=== PATIENT | male | born 1965 | race Hispanic/Latino ===

== ENCOUNTER 2017-10-14 13:16 | Emergency (ER) | payer MEDICAID ==
[2017-10-14] MEDS ORDERED: CATAPRES ONE (14:55)
[2017-10-14] MEDS ORDERED: CATAPRES PO ONE (14:59)
--- NOTE | 2017-10-14 17:30 | Emergency Department Report ---
HPI - General Chief Complaint: Laceration/Recheck/Suture Time Seen by Provider: 10/14/17 17:29 ED Past Medical Hx - Past Medical History Hx Hypertension: Yes - Surgical History Past Surgical History?: Yes Additional Surgical History: METAL PLATE IN LEFT FOOT - Social History Smoking Status: Current Every Day Smoker Substance Use Type: Alcohol, Marijuana ED Review of Systems ROS: Stated complaint: FACE LACERATION Other details as noted in HPI Physical Exam - Physical Exam Vital Signs: Vital Signs 10/14/17 10/14/17 10/14/17 14:37 14:59 16:39 Temperature 98.3 F Pulse Rate 86 86 68 Respiratory 16 18 Rate Blood Pressure 207/128 207/128 Blood Pressure 161/95 [Right] O2 Sat by Pulse 99 98 Oximetry ED Course Vital Signs 10/14/17 10/14/17 10/14/17 14:37 14:59 16:39 Temperature 98.3 F Pulse Rate 86 86 68 Respiratory 16 18 Rate Blood Pressure 207/128 207/128 Blood Pressure 161/95 [Right] O2 Sat by Pulse 99 98 Oximetry Critical care attestation.: If time is entered above; I have spent that time in minutes in the direct care of this critically ill patient, excluding procedure time. ED Disposition Condition: Stable Referrals: PRIMARY CARE, [Primary Care Provider] - 3-5 Days
[2017-10-14] MEDS ORDERED: XYLOCAINE 1% MPF 5 mL INFILTRATI ONE (17:47)
[2017-10-14] MEDS ORDERED: VALIUM PO ONE (17:47)
[2017-10-14] MEDS ORDERED: ROCEPHIN IM ONE (17:47)
[2017-10-14] MEDS ORDERED: MARCAINE 0.5% INFILTRATI ONE (17:52)
[2017-10-14] MEDS ORDERED: NACL 0.9% IR ONE (17:52)
--- NOTE | 2017-10-14 17:53 | Emergency Department Report ---
Chief Complaint: Laceration/Recheck/Suture Stated Complaint: FACE LACERATION Time Seen by Provider: 10/14/17 17:29 - HPI History of Present Illness: Patient and he reports that he fell and hit his face today at work and he has a cut on the right side of his eye between his eye in his nose.10/14/17 14:00 He said a piece of ear condition all equipment cut his nasal area. Patient reports that he has swelling around his right eye and slight headache at 2 out of 10. Denies any nausea or vomiting. Denies passing out or loss of consciousness. Denies taking any medication. Patient is also saying that he has a history of high blood pressure and is supposed to be taken out some kind of blood pressure medication but he doesn't remember what it is. He is also saying that he was on crack and got off crack 7 years ago but he still shaky and he needs something for nervousness. Patient does not have a primary care doctor and would like to be referred to one. Patient is hypertensive at 207/ 128 and he was given clonidine 0.2 mg. Denies any chest pain or shortness of breath. - ROS Review of Systems: All systems are negative unless stated in HPI above - Exam Vital Signs: Vital Signs 10/14/17 10/14/17 10/14/17 14:37 14:59 16:39 Temperature 98.3 F Pulse Rate 86 86 68 Respiratory 16 18 Rate Blood Pressure 207/128 207/128 Blood Pressure 161/95 [Right] O2 Sat by Pulse 99 98 Oximetry 10/14/17 17:33 Temperature Pulse Rate 79 Respiratory 20 Rate Blood Pressure Blood Pressure 152/103 [Right] O2 Sat by Pulse Oximetry Physical Exam: Gen.: This is a 52-year-old male well-nourished well-developed, he looks disheveled but appears to be his norm. Mini neurological exam: Alert and oriented 3, normal gait, GCS of 15. Speech is clear and fluid. No facial drooping. Negative Romberg and negative pronator drift Skin: Noted large irregular, deep laceration that is bleeding into right facial area in a canthus close to eye and nasal area. Head: Positive swelling and around right eye, positive facial tenderness. Head is normocephalic, atraumatic to skull area. Psych: Patient appears slightly anxious with some tremors to hand. MSE screening note: Focused history and physical exam performed. Due to findings the following was ordered: See MDM ED Medical Decision Making - Medical Decision Making MDM: Screening done by provider. Patient was given clonidine 0.2 mg in triage area and blood pressure rechecked and is better but diastolic is still a 103. It was at 128 prior to clonidine. Patient was given Valium 10 mg by mouth for anxiety. CT scan of the head and facial bones ordered and pending. Tetanus vaccine ordered. Patient given Rocephin 1 g IM to cover facial laceration. Laceration set up. CT scan of the head and facial bones though pending. ED Disposition for MSE Condition: Stable Referrals: PRIMARY CARE, [Primary Care Provider] - 3-5 Days
[2017-10-14] MEDS ORDERED: BOOSTRIX IM ONE (18:51)
--- NOTE | 2017-10-14 19:37 | Cat Scan Report ---
FINAL REPORT EXAM: CT FACIAL BONES WO CON HISTORY: fall with facial laceration and pain. rt periorb TECHNIQUE: CT head without contrast PRIORS: None. FINDINGS: No acute intra-axial or extra-axial hemorrhage is identified. There is no evidence of midline shift or mass effect. The ventricles and sulci are within normal limits. Rondon-white matter differentiation is intact. No acute parenchymal abnormalities seen. Bony calvarium is grossly intact. Visualized portions of the mastoids and paranasal sinuses are unremarkable. IMPRESSION: Negative CT head
--- NOTE | 2017-10-14 19:56 | Cat Scan Report ---
FINAL REPORT EXAM: CT HEAD/BRAIN WO CON HISTORY: fall with headache, contusion TECHNIQUE: Axial noncontrast CT images of the brain were performed. Total exam DLP 2293.15 mGy-cm Comparison: None FINDINGS: Sequence was repeated due to motion degradation. There is mild cortical atrophy. There is no midline shift or mass effect. There are no acute extra-axial fluid collections or intraparenchymal blood products Ventricles and cisterns have normal size and configuration. Conjugate gaze. Orbital cones and apices are within normal limits. There is mild inferior frontal sinus mucosal thickening. The remaining imaged paranasal sinuses are well aerated. Incidental identified cavum septum pellucidum. Right frontal and nasolacrimal region soft tissue swelling without associated fracture. IMPRESSION: No acute posttraumatic intracranial abnormality. Specifically, no blood products. Right frontal and nasal lacrimal/nasofrontal region soft tissue swelling without underlying fracture. Well aerated frontal sinus. There is mild left inferior frontal sinus mucosal thickening.
--- NOTE | 2017-10-14 20:05 | Emergency Department Report ---
ED Head Trauma HPI - General Chief complaint: Laceration/Recheck/Suture Stated complaint: FACE LACERATION Time Seen by Provider: 10/14/17 17:29 Source: patient Mode of arrival: Ambulatory Limitations: No Limitations - History of Present Illness Initial comments: 52-year-old male past medical history hypertension, drug use presents with complaint of laceration to right orbit/eyebrow region, as per patient he was moving around a piece of air-conditioning equipment in the back of a truck, tripped and fell forward and hit PVC pipe sticking out of air-conditioning equipment lacerated his right orbit region. Patient denies any loss of consciousness. Patient is awake alert and oriented 3 with visible laceration just below right eyebrow. Denies any blurry vision. States he is out of his hypertension medication. Denies any trauma to any other body part. MD Complaint: head injury, head pain -: This afternoon Location: occipital (right upepr orbit) Loss of Consciousness: no Previous Trauma to this Area: No Place: home Radiation: none Severity: mild Severity scale (0 -10): 7 Quality: sharp Consistency: intermittent Other Injuries: laceration Associated Symptoms: denies other symptoms - Related Data Previous Rx's Medication Instructions Recorded Last Taken Type Acetaminophen [Acetaminophen TAB] 500 mg PO Q6HR PRN #20 tablet 10/14/17 Unknown Rx Cephalexin [Keflex] 500 mg PO Q12HR #10 cap 10/14/17 Unknown Rx Neomy/Baci/Polymyx Oint [Triple 1 applicatio TP BID #1 oint 10/14/17 Unknown Rx Antibiotic] amLODIPine [Norvasc] 5 mg PO DAILY #30 tab 10/14/17 Unknown Rx Allergies/Adverse reactions: Allergies Allergy/AdvReac Type Severity Reaction Status Date / Time No Known Allergies Allergy Verified 10/14/17 15:03 ED Review of Systems ROS: Stated complaint: FACE LACERATION Other details as noted in HPI Constitutional: denies: chills, fever Eyes: denies: eye pain, eye discharge, vision change ENT: denies: ear pain, throat pain Respiratory: denies: cough, shortness of breath, wheezing Cardiovascular: denies: chest pain, palpitations Endocrine: no symptoms reported Gastrointestinal: denies: abdominal pain, nausea, diarrhea Genitourinary: denies: urgency, dysuria Musculoskeletal: denies: back pain, joint swelling, arthralgia Skin: denies: rash, lesions Neurological: denies: headache, weakness, paresthesias Psychiatric: denies: anxiety, depression Hematological/Lymphatic: denies: easy bleeding, easy bruising ED Past Medical Hx - Past Medical History Hx Hypertension: Yes - Surgical History Past Surgical History?: Yes Additional Surgical History: METAL PLATE IN LEFT FOOT - Social History Smoking Status: Current Every Day Smoker Substance Use Type: Alcohol, Marijuana - Medications Home Medications: Home Medications Medication Instructions Recorded Confirmed Last Taken Type Acetaminophen [Acetaminophen TAB] 500 mg PO Q6HR PRN #20 tablet 10/14/17 Unknown Rx Cephalexin [Keflex] 500 mg PO Q12HR #10 cap 10/14/17 Unknown Rx Neomy/Baci/Polymyx Oint [Triple 1 applicatio TP BID #1 oint 10/14/17 Unknown Rx Antibiotic] amLODIPine [Norvasc] 5 mg PO DAILY #30 tab 10/14/17 Unknown Rx ED Physical Exam - General Limitations: No Limitations General appearance: alert, in no apparent distress - Head Head exam: Present: atraumatic, normocephalic - Eye Eye exam: Present: normal appearance, PERRL, EOMI Pupils: Present: normal accommodation - ENT ENT exam: Present: mucous membranes moist - Neck Neck exam: Present: normal inspection - Respiratory Respiratory exam: Present: normal lung sounds bilaterally. Absent: respiratory distress - Cardiovascular Cardiovascular Exam: Present: regular rate, normal rhythm. Absent: systolic murmur, diastolic murmur, rubs, gallop - GI/Abdominal GI/Abdominal exam: Present: soft, normal bowel sounds - Rectal Rectal exam: Present: deferred - Extremities Exam Extremities exam: Present: normal inspection - Back Exam Back exam: Present: normal inspection - Neurological Exam Neurological exam: Present: alert, oriented X3 - Psychiatric Psychiatric exam: Present: normal affect, normal mood - Skin Skin exam: Present: warm, dry, intact, normal color. Absent: rash ED Course Vital Signs 10/14/17 10/14/17 10/14/17 14:37 14:59 16:39 Temperature 98.3 F Pulse Rate 86 86 68 Respiratory 16 18 Rate Blood Pressure 207/128 207/128 Blood Pressure 161/95 [Right] O2 Sat by Pulse 99 98 Oximetry 10/14/17 17:33 Temperature Pulse Rate 79 Respiratory 20 Rate Blood Pressure Blood Pressure 152/103 [Right] O2 Sat by Pulse Oximetry - Laceration /Wound Repair Right Face Wound Location: face (under right eyebrow) Wound Length (cm): 6 Wound's Depth, Shape: linear Irrigated w/ Saline (ccs): 100 Anesthesia: 1% Lidocaine Volume Anesthetic (ccs): 6 Wound Debrided: minimal Wound Repaired With: sutures Suture Size/Type: 4:0, nylon Number of Sutures: 8 Sterile Dressing Applied?: No (triple abx ointment) - Medical Decision Making A/P: Right eyebrow Laceration, asymptomatic hypertension 1- sutures to be removed in [address] head unremarkable. Post concussion precautions. 2- tetanus updated 3- Motrin when necessary, triple antibiotic ointment 4- pt advised to return to the ED for any fevers chills pus drainage erythema at site of laceration 5- patient's blood pressure was significantly elevated before discharge. Systolic 180 diastolic 120. I encouraged patient to stay for further testing and management the patient stated he needed to leave due to personal responsibilities. I advised in one patient that uncontrolled blood pressure can lead to stroke and heart attack permanent disability or . Patient stated he understood but stated he still related to leave. I referred him to primary care prescribed him low-dose amlodipine and patient signed out AGAINST MEDICAL ADVICE. This was witnessed by pedodontist Mr. Jasso - NEXUS Criteria Focal neurological deficit present: No Midline spinal tenderness present: No Altered level of consciousness: No Intoxication present: No Distracting injury present: No NEXUS results: C-Spine can be cleared clinically by these results. Imaging is not required. Critical care attestation.: If time is entered above; I have spent that time in minutes in the direct care of this critically ill patient, excluding procedure time. ED Disposition Clinical Impression: Asymptomatic hypertension Laceration of right eyebrow Qualifiers: Encounter type: initial encounter Qualified Code(s): S01.111A - Laceration without foreign body of right eyelid and periocular area, initial encounter Disposition: LEFT AGAINST MED ADVICE Is pt being admited?: No Does the pt Need Aspirin: No Condition: Stable Instructions: Amlodipine (By mouth), Suture Care (ED), Laceration (ED), Post Concussion Syndrome (ED), Hypertension (ED) Additional Instructions: Sutures to be removed in 7 days Prescriptions: Acetaminophen [Acetaminophen TAB] 500 mg PO Q6HR PRN #20 tablet PRN Reason: Pain amLODIPine [Norvasc] 5 mg PO DAILY #30 tab Cephalexin [Keflex] 500 mg PO Q12HR #10 cap Neomy/Baci/Polymyx Oint [Triple Antibiotic] 1 applicatio TP BID #1 oint Referrals: [facility] [Outside] - 3-5 Days [facility] [Outside] - 3-5 Days [facility] [Outside] - 3-5 Days [facility] [Outside] - 3-5 Days Forms: AMA Form Time of Disposition: 20:21
[2017-10-14] MEDS ORDERED: TRIPLE ANTIBIOTIC TP ONE (20:20)
[2017-10-14] MEDS ORDERED: APRESOLINE IM ONE (20:38)
[2017-10-14] MEDS ORDERED: NORVASC PO ONE (20:39)
[2017-10-15 03:50] VITALS: BP 183/121
== END 2017-10-14 20:45 | disposition left against medical advice (07) ==
LOC: ED 13:16
DX: S01.111A Laceration without foreign body of right eyelid and periocular area, initial encounter (principal); I10 Essential (primary) hypertension; F12.10 Cannabis abuse, uncomplicated; F17.200 Nicotine dependence, unspecified, uncomplicated; W01.198A Fall on same level from slipping, tripping and stumbling with subsequent striking against other object, initial encounter; Y93.89 Activity, other specified; Y92.89 Other specified places as the place of occurrence of the external cause; Y99.8 Other external cause status
CPT/HCPCS: 12014; 70450; 70486; 90471; 90715; 96372; 99283; J0696; A6250

== ENCOUNTER 2017-12-13 11:29 | Emergency (ER) | payer MEDICAID ==
[2017-12-13 11:53] VITALS: BP 140/80
== END 2017-12-13 11:47 | disposition left against medical advice (07) ==
LOC: ED 11:29
DX: Z72.89 Other problems related to lifestyle (principal); F17.200 Nicotine dependence, unspecified, uncomplicated; Z53.21 Procedure and treatment not carried out due to patient leaving prior to being seen by health care provider

== ENCOUNTER 2018-02-12 17:04 | Emergency (ER) | payer MEDICAID ==
[2018-02-12] MEDS ORDERED: NACL 0.9% 1000 ML 2,000 ML ONE (17:27)
[2018-02-12] MEDS ORDERED: NACL 0.9% 1000 ML 2,000 ML IV ONE (17:39)
[2018-02-12] MEDS ORDERED: ATIVAN IM PRN (18:29)
[2018-02-12] MEDS ORDERED: HALDOL IM PRN (18:29)
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
[2018-02-12 19:04] LABS: Mean Corpuscular HGB Conc 36 % (32-34); Mean Corpuscular Hemoglobin 35 pg (28-32); Mean Corpuscular Volume 96 fl (84-94); Platelet Count 319 K/mm3 (140-440); Red Blood Count 4.09 M/mm3 (3.65-5.03); Red Cell Distribution Width 13.8 % (13.2-15.2)
[2018-02-12 19:07] LABS: Hematocrit 39.2 % (35.5-45.6); Hemoglobin 14.3 gm/dl (11.8-15.2)
[2018-02-12 19:16] LABS: BUN/Creatinine Ratio 13; Blood Urea Nitrogen 5 mg/dL (9-20); Calcium 8.1 mg/dL (8.4-10.2); Hemolysis Index 2
[2018-02-12] MEDS ORDERED: K-DUR PO ONE (19:21)
[2018-02-12] MEDS: KCL 10MEQ/100ML 10 MEQ/100 ML BAG IV SCH ×3 (19:56→23:10)
--- NOTE | 2018-02-12 20:51 | Cat Scan Report ---
FINAL REPORT PROCEDURE: CT CERVICAL SPINE WO CON TECHNIQUE: Computerized tomography of the cervical spine was performed from the skull base to T1 without contrast material. HISTORY: Alcohol Intoxication COMPARISON: No prior studies are available for comparison. FINDINGS: There is mild degree straightening of the upper cervical spine. Vertebral height is within normal limits. An acute fracture is not identified. Visualized lung apices demonstrate centrilobular emphysematous changes. Atherosclerotic calcification is noted involving carotid bifurcations. Thyroid is unremarkable. C1-2: There is narrowing of the atlantoaxial joint space with mild degree osteophyte formation.. C2-3: No significant abnormality. C3-4: There is mild degree bilateral neural foraminal stenosis secondary to uncovertebral degenerative changes.. C4-5: Mild degree left neural foraminal stenosis is noted secondary to uncovertebral degenerative changes.. C5-6: There is mild degree broad-based disc osteophyte complex resulting in moderate degree left lateral recess stenosis. Mild degree right-sided and moderate degree left-sided neural foraminal stenosis is noted secondary to uncovertebral degenerative changes.. C6-7: Moderate to severe degree right neural foraminal stenosis is noted secondary to uncovertebral degenerative changes.. C7-T1: No significant abnormality. Other: No additional findings. IMPRESSION: Multilevel cervical spondylosis as described above. No acute fracture Carotid calcification is noted. Ultrasound evaluation is recommended. Centrilobular emphysema.
--- NOTE | 2018-02-12 21:10 | Cat Scan Report ---
FINAL REPORT PROCEDURE: CT HEAD/BRAIN WO CON TECHNIQUE: Computerized tomography of the head was performed without contrast material. HISTORY: Alcohol Intoxication COMPARISON: No prior studies are available for comparison. FINDINGS: Skull and scalp: Normal. Paranasal sinuses: Normal. Ventricles and subarachnoid spaces: Are prominent consistent with cerebral atrophy appropriate for patient's age.. Cerebrum: No evidence of hemorrhage, acute infarction or mass . Cerebellum and brainstem: No evidence of hemorrhage, acute infarction or mass. Vasculature: Atherosclerotic calcification is noted involving bilateral internal carotid and vertebral arteries. There is mild degree mucosal thickening of left maxillary sinus. Comments: None. IMPRESSION: No acute intracranial abnormality Chronic left maxillary sinusitis
--- NOTE | 2018-02-12 21:29 | XRay Report ---
FINAL REPORT PROCEDURE: XR CHEST 1V AP TECHNIQUE: Chest radiograph anteroposterior view. CPT 79974 HISTORY: Alcohol Intoxication COMPARISON: No prior studies are available for comparison. FINDINGS: Heart: Normal. Mediastinum/Vessels: Normal. Lungs/Pleural space: A small patchy density is noted in the right upper lobe. Left lung and bilateral pleural spaces are clear.. Bony thorax: No acute osseous abnormality. Life support devices: None. IMPRESSION: A small patchy density in the right upper lobe is suspicious for pneumonia. A two view chest study is recommended whenever the patient's condition permits..
[2018-02-13] MEDS: KCL 10MEQ/100ML 10 MEQ/100 ML BAG IV SCH (01:18)
[2018-02-13 06:27] VITALS: BP 126/70
== END 2018-02-13 06:26 ==
LOC: ED 17:04
DX: F10.129 Alcohol abuse with intoxication, unspecified (principal); I10 Essential (primary) hypertension; R51 Headache; F17.200 Nicotine dependence, unspecified, uncomplicated
CPT/HCPCS: 36415; 70450; 71045; 72125; 80048; 83735; 85027; 96365; 99285; G0480; J3480; J7030; 80320

== ENCOUNTER 2018-02-27 08:40 | Emergency (ER) | payer MEDICAID ==
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
[2018-02-27] MEDS ORDERED: CATAPRES PO ONE (09:34)
[2018-02-27] MEDS ORDERED: MOTRIN PO ONE (09:34)
[2018-02-27] MEDS ORDERED: ULTRAM PO ONE (09:34)
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
[2018-02-27] MEDS ORDERED: TRIPLE ANTIBIOTIC TP ONE (10:32)
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
[2018-02-27 10:48] LABS: Amphetamine Screen,Urine PRESUMPTIVE NEGATIVE; Cocaine Screen,Urine PRESUMPTIVE NEGATIVE; Methadone Screen,Urine PRESUMPTIVE NEGATIVE; Opiate Screen,Urine PRESUMPTIVE NEGATIVE
[2018-02-27 10:49] VITALS: BP 131/93
[2018-02-27 11:02] LABS: Benzodiazepines Screen,Urine PRESUMPTIVE POSITIVE; Cannabinoid Screen,Urine PRESUMPTIVE POSITIVE
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
== END 2018-02-27 12:20 | disposition home or self-care (01) ==
LOC: ED 08:40
DX: S22.32XA Fracture of one rib, left side, initial encounter for closed fracture (principal); S50.02XA Contusion of left elbow, initial encounter; S00.81XA Abrasion of other part of head, initial encounter; I10 Essential (primary) hypertension; Y04.2XXA Assault by strike against or bumped into by another person, initial encounter; Y93.89 Activity, other specified; Y92.89 Other specified places as the place of occurrence of the external cause; Y99.8 Other external cause status
CPT/HCPCS: 70450; 80307; 93005; 93010; A6250

== ENCOUNTER 2018-09-25 16:29 | Emergency (ER) | payer MEDICAID, OTHER ==
--- NOTE | 2018-09-25 16:46 | Emergency Department Report ---
Blank Doc - Documentation Documentation: Jumped off ladder and having left foot numbness since yesterday yesterday. This initial assessment diagnostic orders/clinical plan/treatment (s) is/Are subject change based on patient's health status, clinical progression and re- assessment by fellow clinical providers in the ED. Further treatment and work-up at subsequent clinical providers discretion. Patient/guardians urged not to elope from their condition may be serious if not clinically assessed and managed. Initial order include:
--- NOTE | 2018-09-25 17:50 | XRay Report ---
PROCEDURE: XR FOOT 2V LT TECHNIQUE: Frontal and lateral views left foot HISTORY: Trauma COMPARISONS: None FINDINGS: There is evidence of a previous tarsal metatarsal fusion of the great toe. There is deformity of the second and third metatarsals consistent with sequela of previous fracture. There is no plain film evidence of acute fracture, subluxation or hardware failure. The soft tissues are unremarkable. IMPRESSION: 1. No plain film evidence of fracture, subluxation or hardware failure. 2. Sequela of previous fractures second and third metatarsal and previous great toe tarsometatarsal f usion with retained hardware. If there is a persistent clinical concern for acute injury, CT or MRI may be helpful. This document is electronically signed by Linda Mera MD., September 25 2018 05:48:17 PM ET
[2018-09-25] MEDS ORDERED: ULTRAM PO ONE (19:30)
--- NOTE | 2018-09-25 19:38 | Emergency Department Report ---
ED Lower Extremity HPI - General Chief Complaint: Neuro Symptoms/Deficit Stated Complaint: LFT FOOT TINGLE Time Seen by Provider: 09/25/18 19:27 Source: patient Mode of arrival: Ambulatory Limitations: No Limitations - History of Present Illness Initial Comments: Patient is a 53-year-old white male s tates he fell from ladder on yesterday approximately 8 feet landing on his feet did not present yesterday as he had no pain yesterday however woke up with left foot pain this morning described as 7/10 exacerbated by weightbearing flexing palpation patient to ED today pain is described as tingling and aching pain is relieved by offloading and rest there is no bleeding no deformity patient remains embolus or a steady gait to baseline per patient at this time MD Complaint: foot injury Onset/Timin -: days(s) Injury: Foot: Left Type of Injury: other (fall) Severity scale (0 -10): 4 Improves With: rest Worsens With: weight bearing, movement, palpation Associated Symptoms: snap/pop sensation, tingling - Related Data Home Medications Medication Instructions Recorded Confirmed Last Taken Docusate Sodium [Colace CAP] 100 mg PO BID PRN 06/28/18 06/28/18 06/28/18 FLUoxetine HCL [Prozac] 20 mg PO DAILY 06/28/18 06/28/18 06/28/18 Haloperidol 10 mg PO BID 06/28/18 06/28/18 06/28/18 carBAMazepine [Carbamazepine] 200 mg PO DAILY 06/28/18 06/28/18 06/28/18 diphenhydrAMINE [Benadryl CAP] 50 mg PO DAILY 06/28/18 06/28/18 06/28/18 Previous Rx's Medication Instructions Recorded Last Taken Type amLODIPine [Norvasc] 5 mg PO DAILY #30 tab 10/14/17 06/28/18 Rx Cyclobenzaprine [Flexeril] 10 mg PO TID PRN #30 tablet 09/25/18 Unknown Rx Naproxen 500 mg PO BID PRN #30 tablet 09/25/18 Unknown Rx Terbinafine [LamiSIL At 1%] 1 applicatio TP BID 14 Days #1 tube 09/25/18 Unknown Rx Allergies Allergy/AdvReac Type Severity Reaction Status Date / Time No Known Allergies Allergy Verified 09/25/18 16:48 ED Review of Systems ROS: Stated complaint: LFT FOOT TINGLE Other details as noted in HPI Constitutional: denies: chills, fever Eyes: denies: eye pain, eye discharge, vision change ENT: denies: ear pain, throat pain Respiratory: denies: cough, shortness of breath, wheezing Cardiovascular: denies: chest pain, palpitations Endocrine: no symptoms reported Gastrointestinal: denies: abdominal pain, nausea, diarrhea Genitourinary: denies: urgency, dysuria Musculoskeletal: arthralgia, other (foot paion ). denies: back pain, joint swelling Skin: denies: rash, lesions Neurological: denies: headache, weakness, paresthesias Psychiatric: denies: anxiety, depression Hematological/Lymphatic: denies: easy bleeding, easy bruising ED Past Medical Hx - Past Medical History Hx Hypertension: Yes Hx Congestive Heart Failure: No Hx Diabetes: No Hx Sickle Cell Disease: No Hx Seizures: Yes Hx Psychiatric Treatment: Yes (history of hernia, bipolar disorder) Hx Asthma: No Hx COPD: No Hx HIV: No - Surgical History Hx Open Heart Surgery: No Hx Cholecystectomy: No Hx Appendectomy: No Hx Breast Surgery: No Additional Surgical History: METAL PLATE IN LEFT FOOT - Social History Smoking Status: Current Every Day Smoker Substance Use Type: None - Medications Home Medications: Home Medications Medication Instructions Recorded Confirmed Last Taken Type amLODIPine [Norvasc] 5 mg PO DAILY #30 tab 10/14/17 06/28/18 06/28/18 Rx Docusate Sodium [Colace CAP] 100 mg PO BID PRN 06/28/18 06/28/18 06/28/18 History FLUoxetine HCL [Prozac] 20 mg PO DAILY 06/28/18 06/28/18 06/28/18 History Haloperidol 10 mg PO BID 06/28/18 06/28/18 06/28/18 History carBAMazepine [Carbamazepine] 200 mg PO DAILY 06/28/18 06/28/18 06/28/18 History diphenhydrAMINE [Benadryl CAP] 50 mg PO DAILY 06/28/18 06/28/18 06/28/18 History Cyclobenzaprine [Flexeril] 10 mg PO TID PRN #30 tablet 09/25/18 Unknown Rx Naproxen 500 mg PO BID PRN #30 tablet 09/25/18 Unknown Rx Terbinafine [LamiSIL At 1%] 1 applicatio TP BID 14 Days #1 tube 09/25/18 Un known Rx ED Physical Exam - General Limitations: No Limitations General appearance: alert, in no apparent distress - Head Head exam: Present: atraumatic, normocephalic - Eye Eye exam: Present: normal appearance, PERRL, EOMI Pupils: Present: normal accommodation - ENT ENT exam: Present: normal orophraynx, mucous membranes moist, TM's normal bilaterally, normal external ear exam - Neck Neck exam: Present: normal inspection, full ROM. Absent: tenderness, meningismus, lymphadenopathy, thyromegaly - Expanded Neck Exam Expanded Neck exam: Absent: tenderness, midline deformity, anterior neck swelling, thyroid mass, carotid bruit, tracheal deviation - Respiratory Respiratory exam: Present: normal lung sounds bilaterally. Absent: respiratory distress, wheezes, stridor, chest wall tenderness - Cardiovascular Cardiovascular Exam: Present: regular rate, normal rhythm, normal heart sounds. Absent: systolic murmur, diastolic murmur, rubs, gallop - GI/Abdominal GI/Abdominal exam: Present: soft, normal bowel sounds. Absent: tenderness, bruit, hernia - Rectal Rectal exam: Present: deferred - Extremities Exam Extremities exam: Present: full ROM, tenderness (left medial foot pain ), normal capillary refill. Absent: pedal edema, joint swelling, calf tenderness - Expanded Lower Extremity Exam Left Foot/Toe exam: Present: tenderness, erythema. Absent: swelling, abrasion, laceration, ecchymosis, deformity, crepidus, dislocation, amputation, puncture wound, foreign body, calcaneal tenderness, tenderness at base of 5th metatarsal, nail avulsion, subungual hematoma Neuro vascular tendon exam: Present: no vascular compromise. Absent: pulse deficit, motor deficit, sensory deficit, tendon deficit Gait: Positive: observed and normal - Back Exam Back exam: Present: normal inspection, full ROM. Absent: tenderness, CVA tenderness (R), CVA tenderness (L), muscle spasm, paraspinal tenderness, vertebral tenderness, rash noted - Neurological Exam Neurological exam: Present: alert, oriented X3, CN II-XII intact, normal gait, reflexes normal - Expanded Neurological Exam Expanded Patient oriented to: Present: person, place, time Speech: Present: fluid speech Cerebellar function: Finger to Nose: Normal, Heel to Wray: Normal, Romberg: Normal Sensory exam: Lower Extremity Light Touch: Normal, Lower Extremity Pin Prick: Normal, Lower Extremity Temperature: Normal, LE 2 Point Discrimination: Normal Motor strength exam: RLE: 5, LLE: 5 DTR: knee (R): 2+, knee (L): 2+, ankle (R): 2+, ankle (L): 2+ Best Eye Response (Vanessa): (4) open spontaneously Best Motor Response ([place]): (6) obeys commands Best Verbal Response (Vanessa): (5) oriented [place] Total: 15 - Psychiatric Psychiatric exam: Present: normal affect, normal mood - Skin Skin exam: Present: warm, dry, intact, normal color. Absent: rash ED Course Vital Signs 09/25/18 16:48 Temperature 99.1 F Pulse Rate 95 H Respiratory 18 Rate Blood Pressure 167/72 O2 Sat by Pulse 97 Oximetry ED Lower Extremity MDM - Radiology Data Radiology results: report reviewed, image reviewed ROCEDURE: XR FOOT 2V LT TECHNIQUE: Frontal and lateral views left foot HISTORY: Trauma COMPARISONS: None FINDINGS: There is evidence of a previous tarsal metatarsal fusion of the great toe. There is deformity of the second and third metatarsals consistent with sequela of previous fracture. There is no plain film evidence of acute fracture, subluxation or hardware failure. The soft tissues are unremarkable. IMPRESSION: 1. No plain film evidence of fracture, subluxation or hardware failure. 2. Sequela of previous fractures second and third metatarsal and previous great toe tarsometatarsal fusion with retained hardware. If there is a persistent clinical concern for acute injury, CT or MRI may be helpful. 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 Gait is steady and uninhibited at this time. Critical care attestation.: If time is entered above; I have spent that time in minutes in the direct care of this critically ill patient, excluding procedure time. ED Disposition Clinical Impression: Foot sprain Qualifiers: Encounter type: initial encounter Tinea pedis Qualifiers: Laterality: left Qualified Code(s): B35.3 - Tinea pedis Disposition: DC-01 TO HOME OR SELFCARE Is pt being admited?: No Does the pt Need Aspirin: No Condition: Stable Instructions: Foot Sprain (ED), Tinea Pedis (ED) Prescriptions: Cyclobenzaprine [Flexeril] 10 mg PO TID PRN #30 tablet PRN Reason: Muscle Spasm Naproxen 500 mg PO BID PRN #30 tablet PRN Reason: Pain Terbinafine [LamiSIL At 1%] 1 applicatio TP BID 14 Days #1 tube Referrals: KENYON MCCAULEYCHANDLER MD DYLAN [Primary Care Provider] - 3-5 Days Forms: Work/School Release Form(ED) Time of Disposition: 19:47
[2018-09-25 20:11] VITALS: BP 129/95
== END 2018-09-25 20:10 | disposition home or self-care (01) ==
LOC: ED 16:29
DX: S93.602A Unspecified sprain of left foot, initial encounter (principal); B35.3 Tinea pedis; I10 Essential (primary) hypertension; F31.9 Bipolar disorder, unspecified; F17.200 Nicotine dependence, unspecified, uncomplicated; Z79.899 Other long term (current) drug therapy; W11.XXXA Fall on and from ladder, initial encounter; Y93.89 Activity, other specified; Y99.8 Other external cause status; Y92.89 Other specified places as the place of occurrence of the external cause
CPT/HCPCS: 99283

== ENCOUNTER 2018-09-30 10:16 | Emergency (ER) | payer MEDICAID ==
--- NOTE | 2018-09-30 12:05 | Emergency Department Report ---
ED Lower Extremity HPI - General Chief Complaint: Fall Stated Complaint: (R) HIP/FEET PAIN Time Seen by Provider: 09/30/18 11:18 Source: patient Mode of arrival: Ambulatory Limitations: No Limitations - History of Present Illness Initial Comments: Patient is a 53-year-old white male who was recently seen here about 5 days ago for bilateral foot pain presents to ED today for same symptoms. He states that pain is localized to his bilateral foot wounds and going on for the past 4 days. Patient describes pain as tingling sensation stating that he can't really feel himself touch in his foot. He states he maybe borderline diabetic when asked. Patient is also complaining of right hip pain stating that it is painful when he walks. Patient also states that he has a history of seizure and has not been on his medication for the past month. Patient states he has not had a seizure episode in the past month. Patient's is exhibits ambulate properly hurts to walk due to the pain in his foot. MD Complaint: foot injury - Related Data Home Medications Medication Instructions Recorded Confirmed Last Taken Docusate Sodium [Colace CAP] 100 mg PO BID PRN 06/28/18 06/28/18 06/28/18 FLUoxetine HCL [Prozac] 20 mg PO DAILY 06/28/18 06/28/18 06/28/18 Haloperidol 10 mg PO BID 06/28/18 06/28/18 06/28/18 carBAMazepine [Carbamazepine] 200 mg PO DAILY 06/28/18 06/28/18 06/28/18 diphenhydrAMINE [Benadryl CAP] 50 mg PO DAILY 06/28/18 06/28/18 06/28/18 Previous Rx's Medication Instructions Recorded Last Taken Type amLODIPine [Norvasc] 5 mg PO DAILY #30 tab 10/14/17 06/28/18 Rx Terbinafine [LamiSIL At 1%] 1 applicatio TP BID 14 Days #1 tube 09/25/18 Unknown Rx Cyclobenzaprine [Flexeril 10 MG 10 mg PO QHS PRN #30 tablet 09/30/18 Unknown Rx TAB] Naproxen 500 mg PO BID PRN #30 tablet 09/30/18 Unknown Rx Allergies Allergy/AdvReac Type Severity Reaction Status Date / Time No Known Allergies Allergy Verified 09/25/18 16:48 ED Review of Systems ROS: Stated complaint: (R) HIP/FEET PAIN Other details as noted in HPI Comment: All other systems reviewed and negative ED Past Medical Hx - Past Medical History Hx Hypertension: Yes Hx Congestive Heart Failure: No Hx Diabetes: No Hx Sickle Cell Disease: No Hx Seizures: Yes Hx Psychiatric Treatment: Yes (history of hernia, bipolar disorder) Hx Asthma: No Hx COPD: No Hx HIV: No - Surgical History Past Surgical History?: Yes Hx Open Heart Surgery: No Hx Cholecystectomy: No Hx Appendectomy: No Hx Breast Surgery: No Additional Surgical History: METAL PLATE IN LEFT FOOT - Social History Smoking Status: Current Every Day Smoker Substance Use Type: Alcohol - Medications Home Medications: Home Medications Medication Instructions Recorded Confirmed Last Taken Type amLODIPine [Norvasc] 5 mg PO DAILY #30 tab 10/14/17 06/28/18 06/28/18 Rx Docusate Sodium [Colace CAP] 100 mg PO BID PRN 06/28/18 06/28/18 06/28/18 History FLUoxetine HCL [Prozac] 20 mg PO DAILY 06/28/18 06/28/18 06/28/18 History Haloperidol 10 mg PO BID 06/28/18 06/28/18 06/28/18 History carBAMazepine [Carbamazepine] 200 mg PO DAILY 06/28/18 06/28/18 06/28/18 History diphenhydrAMINE [Benadryl CAP] 50 mg PO DAILY 06/28/18 06/28/18 06/28/18 History Terbinafine [LamiSIL At 1%] 1 applicatio TP BID 14 Days #1 tube 09/25/18 Unknown Rx Cyclobenzaprine [Flexeril 10 MG 10 mg PO QHS PRN #30 tablet 09/30/18 Unknown Rx TAB] Naproxen 500 mg PO BID PRN #30 tablet 09/30/18 Unknown Rx ED Physical Exam - General Limitations: No Limitations General appearance: alert, in no apparent distress - Head Head exam: Present: atraumatic, normocephalic, normal inspection, other ( no recent injuries, no trauma, no bleeding. Old healed vertical laceration seen) - Eye Eye exam: Present: normal appearance - ENT ENT exam: Present: mucous membranes moist - Neck Neck exam: Present: normal inspection - Respiratory Respiratory exam: Present: normal lung sounds bilaterally. Absent: respiratory distress, wheezes - Cardiovascular Cardiovascular Exam: Present: regular rate, normal rhythm. Absent: systolic murmur, diastolic murmur, rubs, gallop - GI/Abdominal GI/Abdominal exam: Present: soft, normal bowel sounds - Rectal Rectal exam: Present: deferred - Extremities Exam Extremities exam: Present: normal inspection - Expanded Lower Extremity Exam Left Hip exam: Present: normal inspection, full ROM. Absent: tenderness, swelling Upper Leg exam: Present: normal inspection, full ROM. Absent: tenderness, swelling Knee exam: Present: normal inspection, full ROM. Absent: tenderness, swelling Lower Leg exam: Present: normal inspection, full ROM. Absent: tenderness, swelling, José Manuel's sign Ankle exam: Present: normal inspection, full ROM. Absent: tenderness, swelling Foot/Toe exam: Present: normal inspection, full ROM. Absent: tenderness, swelling, abrasion, laceration, erythema, amputation, puncture wound Neuro vascular tendon exam: Present: no vascular compromise Gait: Positive: observed and normal Right Hip exam: Present: normal inspection, full ROM. Absent: tenderness, swelling Upper Leg exam: Present: normal inspection, full ROM Knee exam: Present: full ROM. Absent: normal inspection, tenderness Lower Leg exam: Present: normal inspection, full ROM. Absent: tenderness, swelling Ankle exam: Present: normal inspection, full ROM. Absent: tenderness, swelling, deformity, dislocation, erythema Foot/Toe exam: Present: normal inspection, full ROM. Absent: tenderness, swelling, abrasion, erythema, puncture wound, calcaneal tenderness, tenderness at base of 5th metatarsal Neuro vascular tendon exam: Present: no vascular compromise Gait: Positive: observed and normal - Back Exam Back exam: Present: normal inspection - Neurological Exam Neurological exam: Present: alert, oriented X3, CN II-XII intact, normal gait - Expanded Neurological Exam Expanded Cerebellar function: Finger to Nose: Normal Sensory exam: Upper Extremity Light Touch: Normal, Lower Extremity Light Touch: Normal Motor strength exam: RUE: 5, LUE: 5, RLE: 5, LLE: 5 Best Eye Response ([place]): (4) open spontaneously Best Motor Response ([place]): (6) obeys commands Best Verbal Response ([place]): (5) oriented Vanessa Total: 15 - Psychiatric Psychiatric exam: Present: normal affect, normal mood - Skin Skin exam: Present: warm, dry, intact, normal color. Absent: rash ED Course Vital Signs 09/30/18 09/30/18 09/30/18 10:26 12:22 14:23 Temperature 97.3 F L Pulse Rate 64 76 Respiratory 16 16 15 Rate Blood Pressure 170/84 Blood Pressure 156/100 [Right] O2 Sat by Pulse 100 96 Oximetry ED Lower Extremity MDM - Radiology Data Radiology results: report reviewed, image reviewed Fluoro Time In Minutes: AP PELVIS: HISTORY: Hip pain. AP view of the pelvis shows normal pelvic contour and soft tissues. The hips are symmetric and within normal limits as are the sacroiliac joints. IMPRESSION: Normal pelvis. Transcribed By: TTR Dictated By: TOYA DANIELS JR, MD Electronically Authenticated By: TOYA DANIELS JR, MD Signed Date/Time: 09/30/18 1500 - Medical Decision Making This 53-year-old male presents with foot pain bilateral. X-rays from 5 days ago shows no acute process of the foot x-ray. Due to patient's complaint of right hip pain pelvis x-rays were obtained. X-ray shows no acute findings. Patient is able to ambulate properly with no problems. Vital signs are normal he is in no acute distress. Discussed the patient to follow up with his primary care physician. Patient understand instructions in stable follow-up. Patient had no episodes in the ED. Critical care attestation.: If time is entered above; I have spent that time in minutes in the direct care of this critically ill patient, excluding procedure time. ED Disposition Clinical Impression: Foot pain, bilateral, Foot sprain Disposition: - TO HOME OR SELFCARE Is pt being admited?: No Does the pt Need Aspirin: No Condition: Stable Instructions: Arthralgia (ED) Additional Instructions: Make sure to follow up with the primary care physician as discussed. Take all your medications as you've been prescribed. If you have any worsening symptoms or develop new symptoms please return to ED immediately. Prescriptions: Cyclobenzaprine [Flexeril 10 MG TAB] 10 mg PO QHS PRN #30 tablet PRN Reason: Muscle Spasm Naproxen 500 mg PO BID PRN #30 tablet PRN Reason: Pain Referrals: JOCELIN ARAGON MD [Primary Care Provider] - 3-5 Days Forms: Work/School Release Form(ED) Time of Disposition: 15:37
[2018-09-30] MEDS ORDERED: TORADOL IM ONE (12:11)
[2018-09-30 14:23] VITALS: BP 156/100
--- NOTE | 2018-09-30 15:04 | XRay Report ---
AP PELVIS: HISTORY: Hip pain. AP view of the pelvis shows normal pelvic contour and soft tissues. The hips are symmetric and within normal limits as are the sacroiliac joints. IMPRESSION: Normal pelvis.
== END 2018-09-30 15:45 | disposition home or self-care (01) ==
LOC: ED 10:16
DX: S93.602A Unspecified sprain of left foot, initial encounter (principal); S93.601A Unspecified sprain of right foot, initial encounter; I10 Essential (primary) hypertension; F17.200 Nicotine dependence, unspecified, uncomplicated; X58.XXXA Exposure to other specified factors, initial encounter; Y93.89 Activity, other specified; Y92.89 Other specified places as the place of occurrence of the external cause; Y99.8 Other external cause status
CPT/HCPCS: 72170; 96372; 99283; J1885